=== PATIENT | female | born 1980 | race Caucasian/White ===

== ENCOUNTER → 2016-11-17 | Outpatient (CLI) | payer OTHER ==
[~2016-11-17] MED LIST: ACYCLOVIR800 MG PO; ALBUTEROL-200 PUFFS/ IH; AMOXIL500 M1 PO; BYSTOLIC10 MG PO; CIPRO 500MG TA500 MG PO; EFFEXOR 37.5M37.5 MG PO; FOCALIN XR10 MG PO; KEFLEX 500MG.500 MG PO; LISINOPRIL 10MG10 MG PO; LOMOTIL 2.5MG.2.5 MG PO; LORTAB 5/500 501 TAB PO; MEDROL 4MG. DOSE4 MG PO; OMEPRAZOLE40 MG PO; PERCOCET 5/3251 EACH PO; PHENERGAN 12.12.5 M1 PO; PREDNISONE 20MG20 MG PO; SULFAMETH PO; VICODIN 5/500 T1 TAB PO; ZOFRAN ODT4 MG PO; Zofran4 MG PO; [UNRECOGNIZED DRUG - OTHER] PO
== END ==
LOC: LAB 18:29
DX: J00 Acute nasopharyngitis [common cold] (principal)

== ENCOUNTER 2017-03-20 01:05 | Emergency (ER) | payer OTHER ==
[~2017-03-20] VITALS: Ht 165.1 cm; Wt 84.8 kg
[~2017-03-20 01:05] MED LIST changes: +ERYTHROMYC3.5 GM/TUB OP
--- OUTSIDE RECORDS SUMMARY | 2017-03-20 01:21 | External Medical Summary Rpt ---
Author Author , THEO VENEGAS Address Unknown Phone [email or web address] Care Team Providers Care Floor Installer Name Role Phone Babak Wilder MD, Unavailable Unavailable Babak Wilder MD Purpose Continuity of Care Document - 05-14-2013 through 2016 Problems Code Diagnosis DOS Provider Status 695.2 695.2 10-22-2013 [place] ERYTHEMA [facility] 713.3 713.3 10-22-2013 [place] ARTHROPATHY [facility] Allergies, Adverse Reactions, Alerts Type Drug Allergy Adverse Reaction to Substance Substance Reaction Severity Levofloxacin S-DIFF. BREATHING Severe Medications Na ND Rx Da Fi Fi Am Da Di Ph RX Ph St me C No te ll ll ou ys ag ar # ys at rm s nt no ma ic us Or Da si cy ia de te s n re d Sa 63 02 0 No li 80 -1 ne 70 7- Lo 10 20 ng Fl 07 14 er us 5 h Ac 10 ti ML ve Sy ri ng e KE 00 02 0 No TO 40 -1 RO 93 7- Lo LA 79 20 ng C 50 14 er 30 1 Ac MG ti /M ve L AL SO 00 02 0 No [place]ST[place] 00 -1 -M 90 7- Lo ED 04 20 ng RO 72 14 er L 2 12 Ac 5 ti MG ve AL AC 51 02 0 No ET 07 -1 AM 90 7- Lo IN 16 20 ng OP 19 14 er HE 9H N Ac W/ ti CO ve DE IN E #3 TA K SO 00 09 0 No DI 40 -0 UM 97 9- Lo 98 20 ng CH 30 13 er LO 9 RI Ac DE ti ve 0. 9% SO [place] TI ON Sa 63 09 0 No li 80 -0 ne 70 9- Lo 10 20 ng Fl 07 13 er us 5 h Ac 10 ti ML ve Sy ri ng e Sa 63 09 0 No li 80 -0 ne 70 9- Lo 10 20 ng Fl 07 13 er us 5 h Ac 10 ti ML ve Sy ri ng e MA 00 09 0 No PA 90 -0 P 41 9- Lo 32 98 20 ng 5 26 13 er MG 1 Ac TA ti BL ve ET Vital Signs 10-22-2013 23:10 Name Value Interpretat Reference Comment ion Range BP 75 mm[Hg] Diastolic BP Systolic 130 mm[Hg] Heart 108 /min Rate/Pulse O2% 98 % Respiratory 20 /min Rate 10-22-2013 21:49 Name Value Interpretat Reference Comment ion Range BP 51 mm[Hg] Diastolic BP Systolic 141 mm[Hg] Heart 119 /min Rate/Pulse O2% 99 % Respiratory 20 /min Rate 05-14-2013 14:45 Name Value Interpretat Reference Comment ion Range BP 75 mm[Hg] Diastolic BP Systolic 143 mm[Hg] Heart 87 /min Rate/Pulse O2% 99 % Respiratory 20 /min Rate 05-14-2013 12:53 Name Value Interpretat Reference Comment ion Range BP 89 mm[Hg] Diastolic BP Systolic 125 mm[Hg] Heart 107 /min Rate/Pulse O2% 96 % Respiratory 20 /min Rate Results Labs Lab Lab Date Result Refere Interp Status Commen Order Detail nces retati t Range on COMPREHENSIVE METABOLIC PANEL (10-22-2013 21:40) Glucose 108 74-106 complet 014 mg/dL ed Bld-mCn 21:40 c BUN 8 mg/dL 7-18 complet Bld-mCn 014 ed c 21:40 Creat 0.8 0.6-1.0 complet SerPl-m 014 mg/dL ed Cnc 21:40 GFR/BSA 82 59- complet .pred 014 ML/MIN ed SerPl 21:40 Schwart z-vRate Sodium 138 136-145 complet SerPl-s 014 mmoL/L ed Cnc 21:40 Potassi 3.8 3.5-5.1 complet um 014 mmoL/L ed SerPl-s 21:40 Cnc Chlorid 101 98-107 complet e 014 mmoL/L ed SerPl-s 21:40 Cnc CO2 27 21.0-32 complet SerPl-s 014 mmoL/L .0 ed Cnc 21:40 Calcium 02-17-2 8.8 8.5-10. complet 014 mg/dL 1 ed SerPl-m 21:40 Cnc Prot 02-17-2 7.8 6.4-8.2 complet SerPl-m 014 gm/dL ed Cnc 21:40 Albumin 02-17-2 4.1 3.4-5.0 complet 014 gm/dL ed SerPl-m 21:40 Cnc Globuli 02-17-2 3.7 1.3-3.2 complet n 014 gm/dL ed Ser-mCn 21:40 c Albumin 02-17-2 1.1 UNK 1.1-1.8 complet /Glob 014 ed SerPl-m 21:40 Rto Bilirub 17-2 0.1 0.2-1.0 complet 014 mg/dL ed SerPl-m 21:40 Cnc AST 02-17-2 11 U/L 15-37 complet SerPl-c 014 ed Cnc 21:40 ALT 02-17-2 21 U/L 12-78 complet SerPl-c 014 ed Cnc 21:40 ALP 02-17-2 132 U/L 50-136 complet SerPl-c 014 ed Cnc 21:40 CBC with AUTO DIFF (10-22-2013 21:40) WBC # 02-17-2 9.8 4.8-10. complet Bld 014 K/MM3 8 ed Auto 21:40 RBC # 02-17-2 4.50 4.2-5.4 complet Bld 014 M/mm3 ed Auto 21:40 Hgb 02-17-2 14.0 12.2-16 complet Bld-mCn 014 g/dL .2 ed c 21:40 Hct Fr 02-17-2 40.9 % 37.0-47 complet Bld 014 .0 ed 21:40 MCV RBC 02-17-2 90.8 fl 82.2-97 complet 014 .8 ed 21:40 MCH RBC 02-17-2 31.1 pg 27-31.2 complet Qn 014 ed Auto 21:40 MEAN 02-17-2 34.2 31.8-35 complet CORPUSC 014 g/dl .4 ed ULAR 21:40 HGB CONC RDW RBC 02-17-2 13.2 % 11.5-17 complet Auto 014 .5 ed 21:40 Platele 02-17-2 333 142-424 complet t Bld 014 K/mm3 ed Ql 21:40 Manual MEAN 02-17-2 7.7 fl 7.4-10. complet PLATELE 014 4 ed T 21:40 VOLUME Granulo 02-17-2 59.9 % 37.0-80 complet cytes 014 .0 ed Fr Bld 21:40 Auto LYMPH % 02-17-2 32.0 % 10-50.0 complet 014 ed 21:40 Monocyt 02-17-2 5.3 % 1.7-9.3 complet es Fr 014 ed Bld 21:40 Auto Eosinop 02-17-2 2.3 % 0.1-12. complet hil Fr 014 0 ed Bld 21:40 Auto Basophi 02-17-2 0.5 % 0.1-2.0 complet ls Fr 014 ed Bld 21:40 Auto Granulo 02-17-2 5.9 1.8-7.8 complet cytes # 014 K/mm3 ed Bld 21:40 Auto Lymphoc 02-17-2 3.1 0.7-4.5 complet ytes Fr 014 K/mm3 ed Bld 21:40 Auto Monocyt 02-17-2 0.5 0.1-1.0 complet es # 014 K/mm3 ed Bld 21:40 Auto Eosinop 02-17-2 0.2 0.0-0.4 complet hil # 014 K/mm3 ed Bld 21:40 Auto Basophi 02-17-2 0.1 0-0.2 complet ls # 014 K/MM3 ed Bld 21:40 Auto ESR Bld Qn 15M (10-22-2013 21:40) ESR Bld -17-2 4 mm/hr 0-20 complet Qn 15M 014 ed 21:40 URINALYSIS/COMPLETE (05-14-2013 13:55) URINE YELLOW YELLOW complet COLOR 013 ed 13:55 URINE CLEAR CLEAR complet APPEARA 013 ed NCE 13:55 URINE NEGATIV NEG complet GLUCOSE 013 E ed - 13:55 DIPSTIC K URINE NEGATIV NEG complet BILIRUB 013 E ed IN - 13:55 DIPSTIC K URINE NEGATIV NEG complet KETONE 013 E mg/dL ed 13:55 URINE Less 1.005-1 complet SPECIFI 013 than or .030 ed C 13:55 equal GRAVITY to 1.005 URINE 1+ NEG complet BLOOD 013 ed 13:55 URINE 6.5 UNK 5.0-8.5 complet PH 013 ed 13:55 URINE NEGATIV NEG complet PROTEIN 013 E mg/dL ed - 13:55 DIPSTIC K URINE 0.2 NEG complet UROBILI 013 E.U./dL ed NOGEN - 13:55 DIPSTIC K URINE NEGATIV NEG complet NITRATE 013 E ed - 13:55 DIPSTIC K URINE NEGATIV NEG complet LEUK 013 E ed ESTERAS 13:55 E COMPREHENSIVE METABOLIC PANEL (05-14-2013 12:50) Glucose 107 74-106 complet 013 mg/dL ed Bld-mCn 12:50 c BUN 7 mg/dL 7-18 complet Bld-mCn 013 ed c 12:50 Creat 0.8 0.6-1.0 complet SerPl-m 013 mg/dL ed Cnc 12:50 GFR 82 59- complet (ESTIMA 013 ML/MIN ed FRANCESCA) 12:50 Sodium 136 136-145 complet SerPl-s 013 mmoL/L ed Cnc 12:50 Potassi 3.6 3.5-5.1 complet um 013 mmoL/L ed SerPl-s 12:50 Cnc Chlorid 101 98-107 complet e 013 mmoL/L ed SerPl-s 12:50 Cnc CO2 26 21.0-32 complet SerPl-s 013 mmoL/L .0 ed Cnc 12:50 Calcium 8.9 8.5-10. complet 013 mg/dL 1 ed SerPl-m 12:50 Cnc Prot 8.0 6.4-8.2 complet SerPl-m 013 gm/dL ed Cnc 12:50 Albumin 4.3 3.4-5.0 complet 013 gm/dL ed SerPl-m 12:50 Cnc Globuli 3.7 1.3-3.2 complet n 013 gm/dL ed Ser-mCn 12:50 c Albumin 1.2 UNK 1.1-1.8 complet /Glob 013 ed SerPl-m 12:50 Rto Bilirub 0.2 0.2-1.0 complet 013 mg/dL ed SerPl-m 12:50 Cnc AST 10 U/L 15-37 complet SerPl-c 013 ed Cnc 12:50 ALT 29 U/L 30-65 complet SerPl-c 013 ed Cnc 12:50 ALP 137 U/L 50-136 complet SerPl-c 013 ed Cnc 12:50 CBC with AUTO DIFF (05-14-2013 12:50) WBC # 05-14- 9.8 4.8-10. complet Bld 013 K/MM3 8 ed Auto 12:50 RBC # 05-14-2 4.27 4.2-5.4 complet Bld 013 M/mm3 ed Auto 12:50 Hgb 14.0 12.2-16 complet Bld-mCn 013 g/dL .2 ed c 12:50 Hct Fr 41.6 % 37.0-47 complet Bld 013 .0 ed 12:50 MCV RBC 05-14- 97.4 fl 82.2-97 complet 013 .8 ed 12:50 MCH RBC 05-14- 32.8 pg 27-31.2 complet Qn 013 ed Auto 12:50 MEAN 33.7 31.8-35 complet CORPUSC 013 g/dl .4 ed ULAR 12:50 HGB CONC RDW RBC 05-14-2 14.3 % 11.5-17 complet Auto 013 .5 ed 12:50 Platele 05-14- 317 142-424 complet t Bld 013 K/mm3 ed Ql 12:50 Manual MEAN 7.5 fl 7.4-10. complet PLATELE 013 4 ed T 12:50 VOLUME Granulo 81.0 % 37.0-80 complet cytes 013 .0 ed Fr Bld 12:50 Auto LYMPH % 14.3 % 10-50.0 complet 013 ed 12:50 Monocyt 09-09-2 3.5 % 1.7-9.3 complet es Fr 013 ed Bld 12:50 Auto Eosinop -09-2 0.8 % 0.1-12. complet hil Fr 013 0 ed Bld 12:50 Auto Basophi -09-2 0.3 % 0.1-2.0 complet ls Fr 013 ed Bld 12:50 Auto Granulo -09-2 8.0 1.8-7.8 complet cytes # 013 K/mm3 ed Bld 12:50 Auto Lymphoc -09-2 1.4 0.7-4.5 complet ytes Fr 013 K/mm3 ed Bld 12:50 Auto Monocyt -09-2 0.3 0.1-1.0 complet es # 013 K/mm3 ed Bld 12:50 Auto Eosinop -09-2 0.1 0.0-0.4 complet hil # 013 K/mm3 ed Bld 12:50 Auto Basophi -09-2 0.0 0-0.2 complet ls # 013 K/MM3 ed Bld 12:50 Auto B-HCG SerPl Ql (05-14-2013 12:50) B-HCG 05-14-2 NEGATIV NEG complet SerPl 013 E ed Ql 12:50 Encounters Encounter Start End Date Code Location Performer Type Date Emergency СВЕТЛАНА Wilder MD (ER) 4 21:46 4 23:11 [facility] СВЕТЛАНА STARR MD (ER) 3 12:49 3 14:45 [facility]
--- OUTSIDE RECORDS SUMMARY | 2017-03-20 01:21 | External Medical Summary Rpt ---
Demographics Preferred Language Czech Marital Status Unknown Uatsdin Affiliation Unknown Race Unknown Ethnic Group Unknown Author Author MARLENA Address Unknown Phone Immunization No patient found.
--- OUTSIDE RECORDS SUMMARY | 2017-03-20 01:21 | External Medical Summary Rpt ---
Demographics Preferred Language Czech Marital Status Unknown Protestant Affiliation Unknown Race Unknown Ethnic Group Unknown Author Author MARLENA Address Unknown Phone Immunization No patient found.
--- OUTSIDE RECORDS SUMMARY | 2017-03-20 01:21 | External Medical Summary Rpt ---
Author Author , THEO VENEGAS Address Unknown Phone [email or web address] Care Team Providers Care Facilities Clerk Name Role Phone Babak Wilder MD, Unavailable Unavailable Babak Wilder MD Purpose Continuity of Care Document - 05-14-2013 through 2016 Problems Code Diagnosis DOS Provider Status 695.2 695.2 10-22-2013 [place] ERYTHEMA [facility] 713.3 713.3 10-22-2013 [place] ARTHROPATHY [facility] Allergies, Adverse Reactions, Alerts Type Drug Allergy [...] Wilder MD (ER) 4 21:46 4 23:11 [facility] СВЕТЛАНА STARR MD (ER) 3 12:49 3 14:[address] [facility]
--- OUTSIDE RECORDS SUMMARY | 2017-03-20 01:21 | External Medical Summary Rpt ---
Author Author [employer] Organization [employer] Address Unknown Phone Unavailable Purpose Continuity of Care Document - through 2016
--- NOTE | 2017-03-20 01:30 | Emergency Room Report ---
History of Present Illness Time Seen by MD Herrera Presenting Problem in Triage Pt arrived:Walked Presenting Problem:PT WOKE UP TO GO TO THE BATHROOM. SHE FELT FINE WALKING TO THE BATHROOM. ON THE WAY BACK HER HEAD BEGAN TO HURT. UNABLE TO DESCRIBE PAIN. TOOK EQUATE NIGHT SINUS BEFORE COMING TO ER. 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 N Clinical Suspician of Infection? N Mental Status: 1 - Regular (Normal Baseline) Sepsis Risk:Low Sepsis Risk Have you (or family members/close friends) recently traveled outside the [place]? N If Yes, where/when: Have you had exposure to infectious disease within the past month? N TB? Other? Specify: Source patient, RN notes reviewed, family, old records Exam Limitations no limitations Comment acute onset of vertex guzman with no fever/rash/trauma or neuro sx- has hx of migraine guzman Cardiac Chest Pain Chest pain indicative of cardiac No Timing/Duration this evening Severity moderate ALLERGIES Coded Allergies: levofloxacin (From LEVAQUIN) (SWELLING 03/08/16) Home Medications Active Scripts Erythromycin (Erythromycin Ophth Oint 3.5GM Tube) 1 GM OP TID #1 TUBE Prov: 01/03/17 Reported Medications Venlafaxine Hydrochloride (Effexor 37.5MG) 150 MG PO DAILY LISINOPRIL (Lisinopril) 10 MG PO DAILY Omeprazole (Omeprazole 40MG) 40 MG PO DAILY #30 NEBIVOLOL HCL (Bystolic) 10 MG PO DAILY #30 History Medical History General CAD? No Angina: Yes TN: No Hypertension? Yes Hyperlipidemia? No CHF? No DVT? Yes PE? No COPD? No Asthma? Yes Anemia? No GERD? Yes Gastric ulcers? Yes GI Bleed? No Hernia? No Thyroid Problems? No Hypothyroidism? No CVA? Yes Seizures? Yes Diabetes? No Renal Insuffiency? No End Stage Renal Disease? No UTI? No Stones? No BPH? No GB Disease: No Nephritic Syndrome? No Asplenia? No Hepatitis? No Sickle Cell Disease? No Arthritis? No Migraines? Yes Cataracts? No Glaucoma? No MRSA? Yes HIV? No TB? No Anxiety? Yes Depression? No Cancer? 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 Respiratory denies cough, denies shortness of breath, denies wheezing Cardiovascular denies chest pain, denies syncope Gastrointestinal denies abdominal pain, denies diarrhea, denies vomiting Genitourinary denies: dysuria, frequency, hesitancy, hematuria. Musculoskeletal denies back pain, denies joint pain, denies neck pain Skin denies rash Psychiatric/Neurological see HPI, headache, denies seizure Physical Exam Vital Signs Vital Signs Date Time Temp Pulse Resp B/P Pulse O2 O2 Flow FiO2 Ox Delivery Rate 03/20 0354 85 20 113/72 97 03/20 0228 19 03/20 0112 97.7 120 19 132/112 99 - WBC >12,000 or <4,000 or 10% bands? 2 or more SIRS Criteria Met? B/P:132/112 MAP:118 Creatinine >2.0? UA output<0.5ml/kg/hr for 2 hrs? Platelet count >100,000? Lactate >2.0mmol/1? INR >1.2 or PTT > than 60 sec? Evidence of Organ Dysfunction? Provider documented clinical suspician of infection? N Sepsis Criteria Count: 1 Sepsis Risk: Low Sepsis Risk General Appearance no apparent distress Eye Exam - bilateral eye PERRL, bilateral eye EOMI Ear, Nose, Throat normal ENT inspection Neck supple Respiratory Status No: respiratory distress. 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 No Results/Orders Laboratory Tests 03/20/17 0143: Sodium 140, Potassium 3.3 L, Chloride 105, Carbon Dioxide 26, BUN 6 L, Creatinine 0.8, Estimated Creat Clear 126, Estimated GFR (MDRD) 80, Glucose 111 H, Calcium 8.8, Total Bilirubin 0.1 L, AST 11 L, ALT 21, Alkaline Phosphatase 111, Total Protein 7.2, Albumin 3.4, Globulin 3.8 H, Albumin/Globulin Ratio 0.9 L, WBC 7.4, RBC 4.03 L, Hgb 12.8, Hct 38.8, MCV 96.3, RDW 13.2, Plt Count 299, MPV 7.4, Gran % 56.3, Gran # 4.2, Lymphocytes % 35.1, Monocytes % 4.6, Eosinophils % 3.6, Basophils % 0.4, Lymphocytes # 2.6, Monocytes # 0.3, Eosinophils # 0.3, Basophils # 0.0, PUBS MCHC 32.9, MCH 31.7 H 03/20/17 0120: Urine Color YELLOW, Urine Appearance CLEAR, Urine pH 6.5, Ur Specific [place] 1.010, Urine Protein NEGATIVE, Urine Ketones NEGATIVE, Urine Blood 3+ H, Urine Nitrate NEGATIVE, Urine Bilirubin NEGATIVE, Urine Urobilinogen 0.2, Ur Leukocyte Esterase 1+ H, Urine RBC 10-20, Urine WBC 5-10, Ur Squamous Epith Cells 5-10, Amorphous Sediment TRACE, Urine Glucose NEGATIVE Current Medication Orders Sig/Faith Start time Last Medication Dose Route Stop Time Status Admin Diphenhydramine HCl 25 MG ONCE ONE 03/20 230 DC 03/20 IV 03/20 231 0231 Ketorolac 30 MG ONCE ONE 03/20 230 DC 03/20 Tromethamine IV 03/20 231 0228 Promethazine HCl 12.5 MG ONCE ONE 03/20 230 DC 03/20 IV 03/20 231 0231 Sodium Chloride 25 ML ONCE ONE 03/20 230 DC 03/20 IV 03/20 0244 0230 Promethazine HCl 0 .STK-MED ONE 03/20 0228 DC .ROUTE Diphenhydramine HCl 0 .STK-MED ONE 03/20 227 DC .ROUTE Sodium Chloride 25 ML .STK-MED ONE 03/20 227 DC IV Ketorolac 0 .STK-MED ONE 03/20 226 DC Tromethamine .ROUTE Sodium Chloride 10 ML PRN PRN 03/20 0130 AC 03/20 IV 03/21 0130 0230 Orders Procedure Date/time Status DIET-NOTHING BY MOUTH 03/20 B Active IV SALINE LOCK 03/20 013 Active COMPLETE METABOLIC PANEL 03/20 013 Complete CBC WITH AUTO DIFF 03/[address] HEAD W/O CONTRAST 03/20 012 Active CULTURE, URINE 03/[address] HEAD REQ 03/20 0118 Active URINALYSIS/COMPLETE 03/20 011 Complete URINE 03/20 011 Complete XRAY/CT/US XRAY/CT/US CT head CT interpretation by discussed w/radiologist Time results known: 219 CT Results normal/NAD Departure Departure Time of Disposition 0220 Disposition DC Home or Self Care(routine) Clinical Impression Primary Impression: Headache Qualifiers: Headache type: unspecified Headache chronicity pattern: acute headache Intractability: not intractable Qualified Code: R51 - Headache Condition STABLE Referrals Afsaneh Barahona MD (Family) Patient Instructions DI for Headache Additional Instructions call pcp for follow up Discharge Counseling Counseled pt/family regarding diagnosis, test results, follow up needs ED Critical Care Critical Care No at [id number]
[2017-03-20 01:33] LABS: URINE BILIRUBIN - DIPSTICK NEGATIVE (NEG); URINE BLOOD 3+ (NEG)
[2017-03-20 01:56] LABS: HEMOGLOBIN 12.8 g/dL (12.2-16.2); LYMPH # 2.6 K/mm3 (0.7-4.5); LYMPH % 35.1 % (10-50.0)
[2017-03-20 04:17] VITALS: BP 113/72
--- NOTE | 2017-03-20 08:23 | RADIOLOGY REPORT PS360 ---
CT HEAD W/O CONTRAST COMPARISON: CT scan of brain 05/14/2013 HISTORY: Headache TECHNIQUE: Multiaxial scans obtained from base skull to the vertex and were performed without IV contrast. FINDINGS: The base of skull appears normal. The mastoids are clear. The ventricular system is normal. There is no ischemic infarct or bleed and is no extra-axial fluid collections. The bony calvarium appears intact. There is rightward angulation of the nasal septum posteriorly and old fracture cannot be entirely excluded. IMPRESSION: No acute intracranial pathology identified., Agree the [facility] report
== END 2017-03-20 04:18 | disposition home or self-care (01) ==
LOC: ER 01:05
PROVIDERS: Emergency Medicine
DX: R51 Headache (principal); I10 Essential (primary) hypertension; K21.9 Gastro-esophageal reflux disease without esophagitis; Z72.0 Tobacco use

== ENCOUNTER → 2017-08-01 | Outpatient (CLI) | payer OTHER ==
--- NOTE | 2017-08-01 10:58 | CARDIOVASCULAR REPORT ---
"Cerebrovascular Exam Indications: 780.2 Syncope and collapse. IMPRESSIONS 1. The bilateral vertebral arteries are patent with normal antegrade flow. 2. Study suggests less than 20% stenosis involving the right internal carotid artery and the left internal carotid artery. History: Headaches. Risk factors: Current tobacco use. Hypertension. Carotid duplex study. Complete study and Doppler flow study including spectral analysis, color and lazo scale imaging. Height: Height: 165.1cm. Height: 65in. Weight: Weight: 81.6kg. Weight: 179.6lb. Body mass index: BMI: 30kg/m^2. Body surface area: BSA: 1.96m^2. Location: Vascular laboratory. Patient status: Outpatient. Tables: Arterial flow: + +--------+--------+ |Location |V sys |V ed | + +--------+--------+ |Right CCA - proximal|119cm/s |27.5cm/s| + +--------+--------+ |Right CCA - distal |89.6cm/s|29.1cm/s| + +--------+--------+ |Right ECA |98.2cm/s|--------| + +--------+--------+ |Right ICA - proximal|81.7cm/s|31.4cm/s| + +--------+--------+ |Right ICA - mid |98.2cm/s|40.1cm/s| + +--------+--------+ |Right ICA - distal |108cm/s |38.5cm/s| + +--------+--------+ |Right vertebral |55.8cm/s|--------| + +--------+--------+ |Left CCA - proximal |163cm/s |36.7cm/s| + +--------+--------+ |Left CCA - distal |127cm/s |37.5cm/s| + +--------+--------+ |Left ECA |112cm/s |--------| + +--------+--------+ |Left ICA - proximal |93.4cm/s|37.5cm/s| + +--------+--------+ |Left ICA - mid |94.3cm/s|40.2cm/s| + +--------+--------+ |Left ICA - distal |96.9cm/s|49.8cm/s| + +--------+--------+ |Left vertebral |90.4cm/s|--------| + +--------+--------+ Velocity ratios: + + + + + + | |Right, V sys|Right, V ed|Left, V sys|Left, V ed| + + + + + + |Max ICA/dist CCA|1.21 |1.38 |0.76 |1.33 | + + + + + + (Report amended ) Electronically signed by: Davy Spears [id number]"
--- NOTE | 2017-08-02 07:53 | RADIOLOGY REPORT PS360 ---
MRI-BRAIN W/O HISTORY: Syncope, seizures NECK PAIN, ALTERATION OF CONSCIOUSNESS, SYMPTOMATIC HYPERT ORDERING PHYSICIAN: JAYDEN VICKIEROSANNA PATIENT AGE: 37 years COMPARISON: Head CT of 04/24/2017, MRI of to 217 TECHNIQUE: Standard multiplanar multiecho sequences are performed without contrast. FINDINGS: No midline shift, mass effect, intracranial hemorrhage, hydrocephalus, or acute infarction is evident. The cerebellopontine angles, cerebellum, and brainstem are unremarkable. There is normal lazo-white matter differentiation. There are a few scattered T2 white matter hyperintensities in the subcortical region of the frontal lobes. These are nonspecific. The hippocampal gyri are unremarkable in the temporal horns are symmetric. No obvious pituitary mass. The optic chiasm and corpus callosum are unremarkable. There is minimal cerebellar tonsillar ectopia on the right. Mastoid sinuses are unremarkable. No sinus air-fluid level evident.. Upper cervical cord has an unremarkable appearance. IMPRESSION: 1. There are sparse T2 white matter hyperintensities in the frontal lobes nonspecific of questioned clinical significance 2. Otherwise negative MRI of the brain without contrast. No definite acute finding.
== END ==
LOC: RAD 09:30
DX: R40.4 Transient alteration of awareness (principal); I95.89 Other hypotension; F44.5 Conversion disorder with seizures or convulsions; M54.2 Cervicalgia